=== PATIENT | female | born 1975 | race American Indian/Alaskan Native ===

== ENCOUNTER 2021-03-20 23:16 | Emergency (ER) | payer OTHER ==
--- NOTE | 2021-03-21 00:22 | Event Note ---
ED Screening Note ED Screening Note: Patient is a 45-year-old female presents emergency room complaints of right- sided neck swelling that began yesterday She states that she is having some difficulty swallowing She is able to tolerate her secretions She denies any fever, vomiting, shortness of breath Past medical history of hypertension is post to be taking lisinopril, she states she has not taken in several months On exam there is right-sided anterior neck swelling, uvula is midline, no uvular edema or deviation, no trismus, no tongue elevation, underneath the tongue is soft to palpation, no muffled voice, airway is intact This initial assessment/diagnostic orders/clinical plan/treatment(s) is/are subject to change based on patients health status, clinical progression and re- assessment by fellow clinical providers in the ED. Further treatment and workup at subsequent clinical providers discretion. Patient/guardian urged not to elope from the ED as their condition may be serious if not clinically assessed and managed. Initial orders include: Labs, CT
[2021-03-21 01:08] LABS: Basophils # (Auto) 0.1 K/mm3 (0.0-0.1); Eosinophils # (Auto) 0.3 K/mm3 (0.0-0.4); Eosinophils % (Auto) 2.8 % (0.0-4.3); Hematocrit 41.8 % (30.3-42.9); Hemoglobin 13.4 gm/dl (10.1-14.3); Lymphocytes # (Auto) 2.5 K/mm3 (1.2-5.4); Lymphocytes % (Auto) 27.7 % (13.4-35.0); Mean Corpuscular HGB Conc 32 % (30-34); Mean Corpuscular Volume 81 fl (79-97); Monocytes # (Auto) 0.7 K/mm3 (0.0-0.8); Monocytes % (Auto) 7.6 % (0.0-7.3); Platelet Count 275 K/mm3 (140-440); Red Blood Count 5.14 M/mm3 (3.65-5.03); Red Cell Distribution Width 13.7 % (13.2-15.2)
[2021-03-21 01:25] LABS: Albumin 3.8 g/dL (3.9-5)
--- NOTE | 2021-03-21 03:12 | Cat Scan Report ---
CT NECK WITH INTRAVENOUS CONTRAST AND MULTIPLANAR RECONSTRUCTION CLINICAL HISTORY: RIGHT sided neck swelling TECHNIQUE: 2.5 mm thick contiguous axial scans were obtained from the skull base down to the aortic arch during intravenous contrast administration. In addition to evaluation of axial source images sagittal and co gail multiplanar reconstructions were produced and reviewed for this report. Contrast dose report: Omnipaque 300: 100 ML administered intravenously All CT imaging studies performed at this facility utilize dose modulation, iterative reconstruction o r weight based dosing, if appropriate, to obtain the lowest achievable radiation dose. FINDINGS: AIRWAY: There is circumferential narrowing of the supraglottic airway. This begins below the level of the base of the epiglottis at about the level of the hyoid bone and extends down to the level of the vocal cords. Piriform sinuses are effaced. Possibility of supraglottitis should be considered. Are t here symptoms of sore throat, difficulty breathing or difficulty swallowing Other physical findings o f stridor The caliber of the airway appears to be significantly diminished on this examination. Caref ul clinical correlation with the functional adequacy of the patient's airway is advised. Nasopharynx and oropharynx have an unremarkable appearance. Visualized portions of the subglottic airway have an unremarkable appearance. LYMPH NODES: Multiple cervical lymph nodes are identified at these are not enlarged and maintain a no rmal oval shape. There is no indication of pathological lymphadenopathy in the neck. ORAL CAVITY/FLOOR OF MOUTH: No abnormalities are seen in evaluation of the oral cavity and tongue. Th e floor the mouth has a normal appearance. MAJOR SALIVARY GLANDS: The parotid glands are remarkably large but symmetrical in size and free from focal lesions. The submandibular salivary glands are also enlarged but are asymmetrical in size right larger than left. I do not identify a stone along the course of Nichols's duct. There is thickening of the adjacent right platysma muscle compared to that on the left. Mild infiltrative changes are see n in the adjacent fat. The possibility of right submandibular sialoadenitis should be considered. NASAL CAVITY AND PARANASAL SINUSES: Evaluation of the visualized portions of the nasal cavity reveals no abnormality. The visualized paranasal sinuses are free from inflammatory mucosal disease. Superio r margins of the ethmoid air cells and sphenoid sinuses are excluded. Frontal sinuses are excluded fr om this study in their entirety. ORBITS: The orbits are largely excluded from this examination. THYROID GLAND: The thyroid gland is normal in size and homogeneous in attenuation. No focal thyroid l esions are identified. TEMPORAL BONES:Mastoid air cells are normally pneumatized. CERVICAL SPINE: Prominent anterior osteophyte formation is noted at the C4-5 and C5-C6 levels. Centra l spinal canal and neuroforamina are adequately maintained. LUNG APICES: Evaluation of the lung apices reveals no abnormality. There is no indication of lung nod ule or infiltrate. The visualized portions of the superior mediastinum have an unremarkable appearanc e. SUPERIOR MEDIASTINUM: There is a large (2.9 cm diameter) pretracheal and right paratracheal mass whic h may represent an enlarged lymph node. This is incompletely included on this study. Consider CT ches t for further evaluation. CONTRAST ADMINISTRATION: Enhancement of normal vascular structures is demonstrated. No areas of abnor mal contrast enhancement are identified. IMPRESSION: 1. There is moderate narrowing of the supraglottic airway from the hyoid bone down to the false vocal cords. Possibility of supraglottitis should be considered. Careful clinical correlation with the ayde quacy of the patient's airway is advised. 2. Asymmetrical enlargement of the right submandibular salivary gland and mild thickening of the rickey cent platysma muscle suggests the possibility of right submandibular sialoadenitis. Is there tenderne ss to palpation in this region There is no indication of sialolithiasis 3. A pretracheal and right paratracheal mass is identified in the superior mediastinum. This is incom pletely evaluated on this study. This may represent an enlarged lymph node. Further evaluation with C T chest is advised. Signer Name: Sina Fischer MD Signed: 03/21/2021 3:07 AM Workstation Name: [id number]
[2021-03-21] MEDS ORDERED: dexAMETHasone 4 MG/ML VIAL IV ONE (04:32)
--- NOTE | 2021-03-21 04:34 | Emergency Department Report ---
ED General Adult HPI - General Chief complaint: Dental/Oral Stated complaint: FACIAL SWELLING/DIFFICULTY SWALLOWING Time Seen by Provider: 03/21/21 01:29 Source: patient Mode of arrival: Ambulatory Limitations: No Limitations - History of Present Illness Initial comments: 45-year-old -[place] female with no significant past medical history presents emerged department complaining of a few day history of right neck swelling and pain which is worse with eating and drinking and actually causing some disc comfort/difficulty eating and drinking due to the pain. She reports having a similar episode some years ago of what resulted in a salivary stone felt that this was similar she has not felt any stone particles in her oral region. Reports no fever, chills, sweats. No chest pain palpitations, no nausea no vomit Radiation: non-radiation Quality: dull Consistency: constant Improves with: none Worsens with: none Associated Symptoms: denies other symptoms. denies: chest pain, cough, loss of appetite, malaise, shortness of breath, weakness Treatments Prior to Arrival: none - Related Data Previous Rx's Medication Instructions Recorded Last Taken Type Clindamycin [Clindamycin CAP] 300 mg PO Q6H #28 capsule 03/21/21 Unknown Rx Ketorolac [Toradol] 10 mg PO Q6H PRN #15 tablet 03/21/21 Unknown Rx lisinopriL [Zestril TAB] 20 mg PO QDAY #30 tablet 03/21/21 Unknown Rx Allergies Allergy/AdvReac Type Severity Reaction Status Date / Time No Known Allergies Allergy Verified 03/21/21 04:37 ED Review of Systems ROS: Stated complaint: FACIAL SWELLING/DIFFICULTY SWALLOWING Other details as noted in HPI Comment: All other systems reviewed and negative ED Past Medical Hx - Past Medical History Previous Medical History?: No Hx Hypertension: Yes Hx Asthma: Yes - Surgical History Past Surgical History?: No - Medications Home Medications: Home Medications Medication Instructions Recorded Confirmed Last Taken Type Clindamycin [Clindamycin CAP] 300 mg PO Q6H #28 capsule 03/21/21 Unknown Rx Ketorolac [Toradol] 10 mg PO Q6H PRN #15 tablet 03/21/21 Unknown Rx lisinopriL [Zestril TAB] 20 mg PO QDAY #30 tablet 03/21/21 Unknown Rx ED Physical Exam - General Limitations: No Limitations General appearance: alert, in no apparent distress - Head Head exam: Present: atraumatic, normocephalic - Eye Eye exam: Present: normal appearance, PERRL, EOMI. Absent: scleral icterus, conjunctival injection Pupils: Present: normal accommodation - ENT ENT exam: Present: normal exam, normal orophraynx, mucous membranes moist, TM's normal bilaterally, other (Tenderness and some swelling to the right Grant's duct diffuse dental caries noted. Airway is patent tongue uvula midline normal voice no drooling). Absent: mucous membranes dry - Neck Neck exam: Present: normal inspection, tenderness (Tenderness and swelling to the right submandibular region. Parotid glands appear to be normal), full ROM. Absent: meningismus, lymphadenopathy - Respiratory Respiratory exam: Present: normal lung sounds bilaterally. Absent: respiratory distress, wheezes, rales, chest wall tenderness, accessory muscle use, decreased breath sounds - Cardiovascular Cardiovascular Exam: Present: regular rate, normal rhythm. Absent: systolic murmur, diastolic murmur, rubs, gallop - GI/Abdominal GI/Abdominal exam: Present: soft, normal bowel sounds - Extremities Exam Extremities exam: Present: normal inspection - Back Exam Back exam: Present: normal inspection. Absent: CVA tenderness (R), CVA tenderness (L) - Neurological Exam Neurological exam: Present: alert, oriented X3, CN II-XII intact, normal gait - Psychiatric Psychiatric exam: Present: normal affect, normal mood - Skin Skin exam: Present: warm, dry, intact, normal color. Absent: rash ED Course Vital Signs 03/21/21 00:14 Temperature 99 F Pulse Rate 73 Respiratory 16 Rate Blood Pressure 199/115 [Left] O2 Sat by Pulse 98 Oximetry ED Medical Decision Making - Lab Data Result diagrams: 03/21/21 00:46 03/21/21 00:46 - Radiology Data Radiology results: report reviewed [facility] [address] [place] [address] Cat Scan Report Signed Patient: LY SINGH MR#: [id number] : 1975 Acct:[id number] Age/Sex: 45 / F ADM Date: 03/20/21 Loc: ED Attending Dr: Ordering Physician: SARAH MERIDA Date of Service: 03/21/21 Procedure(s): CT neck w con Accession Number(s): [id number] cc: SARAH MERIDA CT NECK WITH INTRAVENOUS CONTRAST AND MULTIPLANAR RECONSTRUCTION CLINICAL HISTORY: RIGHT sided neck swelling TECHNIQUE: 2.5 mm thick contiguous axial scans were obtained from the skull base down to the aortic arch during intravenous contrast administration. In addition to evaluation of axial source images sagittal and coronal multiplanar reconstructions were produced and reviewed for this report. Contrast dose report: Omnipaque 300: 100 ML administered intravenously All CT imaging studies performed at this facility utilize dose modulation, iterative reconstruction or weight based dosing, if appropriate, to obtain the lowest achievable radiation dose. FINDINGS: AIRWAY: There is circumferential narrowing of the supraglottic airway. This begins below the level of the base of the epiglottis at about the level of the hyoid bone and extends down to the level of the vocal cords. Piriform sinuses are effaced. Possibility of supraglottitis should be considered. Are there symptoms of sore throat, difficulty breathing or difficulty swallowing Other physical findings of stridor The caliber of the airway appears to be significantly diminished on this examination. Careful clinical correlation with the functional adequacy of the patient's airway is advised. Nasopharynx and oropharynx have an unremarkable appearance. Visualized portions of the subglottic airway have an unremarkable appearance. LYMPH NODES: Multiple cervical lymph nodes are identified at these are not enlarged and maintain a normal oval shape. There is no indication of pathological lymphadenopathy in the neck. ORAL CAVITY/FLOOR OF MOUTH: No abnormalities are seen in evaluation of the oral cavity and tongue. The floor the mouth has a normal appearance. MAJOR SALIVARY GLANDS: The parotid glands are remarkably large but symmetrical in size and free from focal lesions. The submandibular salivary glands are also enlarged but are asymmetrical in size right larger than left. I do not identify a stone along the course of Grant's duct. There is thickening of the adjacent right platysma muscle compared to that on the left. Mild infiltrative changes are seen in the adjacent fat. The possibility of right submandibular sialoadenitis should be considered. NASAL CAVITY AND PARANASAL SINUSES: Evaluation of the visualized portions of the nasal cavity reveals no abnormality. The visualized paranasal sinuses are free from inflammatory mucosal disease. Superior margins of the ethmoid air cells and sphenoid sinuses are excluded. Frontal sinuses are excluded from this study in their entirety. ORBITS: The orbits are largely excluded from this examination. THYROID GLAND: The thyroid gland is normal in size and homogeneous in attenuation. No focal thyroid lesions are identified. TEMPORAL BONES:Mastoid air cells are normally pneumatized. CERVICAL SPINE: Prominent anterior osteophyte formation is noted at the C4-5 and C5-C6 levels. Central spinal canal and neuroforamina are adequately maintained. LUNG APICES: Evaluation of the lung apices reveals no abnormality. There is no indication of lung nodule or infiltrate. The visualized portions of the superior mediastinum have an unremarkable appearance. SUPERIOR MEDIASTINUM: There is a large (2.9 cm diameter) pretracheal and right paratracheal mass which may represent an enlarged lymph node. This is incompletely included on this study. Consider CT chest for further evaluation. CONTRAST ADMINISTRATION: Enhancement of normal vascular structures is demonstrated. No areas of abnormal contrast enhancement are identified. IMPRESSION: 1. There is moderate narrowing of the supraglottic airway from the hyoid bone down to the false vocal cords. Possibility of supraglottitis should be considered. Careful clinical correlation with the adequacy of the patient's airway is advised. 2. Asymmetrical enlargement of the right submandibular salivary gland and mild thickening of the adjacent platysma muscle suggests the possibility of right submandibular sialoa denitis. Is there tenderness to palpation in this region There is no indication of sialolithiasis 3. A pretracheal and right paratracheal mass is identified in the superior mediastinum. This is incompletely evaluated on this study. This may represent an enlarged lymph node. Further evaluation with CT chest is advised. Signer Name: Sina Fischer MD Signed: 03/21/2021 3:07 AM Workstation Name: [id number] Transcribed By: Dictated By: Sina Fischer MD Electronically Authenticated By: Sina Fischer MD Signed Date/Time: 03/21/21 0307 - Medical Decision Making 45-year-old female [facility] emerge department complaining of neck swelling and pain and CT scan suggestive of a salivary gland infection. She was treated with emergency department with IV steroids as well as IV antibiotics in conjunction with oral pain medication reporting improvement in her symptomology she remained stable vital signs emergency department visit Critical care attestation.: If time is entered above; I have spent that time in minutes in the direct care of this critically ill patient, excluding procedure time. ED Disposition Clinical Impression: Neck pain, Sialadenitis Disposition: 01 HOME / SELF CARE / HOMELESS Is pt being admited?: No Does the pt Need Aspirin: No Instructions: Salivary Gland Infection Prescriptions: Clindamycin [Clindamycin CAP] 300 mg PO Q6H #28 capsule Ketorolac [Toradol] 10 mg PO Q6H PRN #15 tablet PRN Reason: Pain Referrals: JESUS HARRY MD [Staff Physician] - 2-3 Days
[2021-03-21] MEDS ORDERED: oxyCODONE /ACETAMINOPHEN 5-325MG TAB PO ONE (04:40)
[2021-03-21 06:05] VITALS: BP 170/87
== END 2021-03-21 06:06 | disposition home or self-care (01) ==
LOC: ED 23:16
DX: K11.20 Sialoadenitis, unspecified (principal); M54.2 Cervicalgia; I10 Essential (primary) hypertension; J45.909 Unspecified asthma, uncomplicated
CPT/HCPCS: 36415; 70491; 80053; 84703; 85025; 96365; 96375; 99284; J1100; Q9967